=== PATIENT | male | born 1955 | race Caucasian/White ===

== ENCOUNTER → 2018-11-01 | Day surgery (SDC) | payer BC ==
[2018-10-27 13:31] VITALS: BMI 31.5
[~2018-11-01] MED LIST: LACTATED RINGERS 1,000 ML IV SCH; LIDOCAINE 1% 20 ML VIAL (10MG/ML) FOR IV START INTRADERMA ONE; LIDOCAINE 1% 20 ML VIAL (10MG/ML) FOR IV START INTRADERMA PRN; MIDAZOLAM 2 MG/2 ML VIAL ONE; PROPOFOL 10 MG/ML 20 ML VIAL IV ONE; fentaNYL (PF) 50 MCG/ML 2 ML AMP ONE
[2018-11-01 07:56] VITALS: TEMP 97.7
[2018-11-01 08:00] LABS: Glucose,Whole Blood 182 mg/dL (75-99)
--- NOTE | 2018-11-01 08:45 | P.PCN ---
Date of Procedure: 11/01/18 Procedure(s) Performed: BRIEF HISTORY: Patient is a 63-year-old pleasant male, scheduled for an elective colonoscopy as a part of screening for colon neoplasia. PROCEDURE PERFORMED: Colonoscopy with snare polypectomy. PREOPERATIVE DIAGNOSIS: Screening for colon cancer. IV sedation per Anesthesia. PROCEDURE: After informed consent was obtained, the patient, was brought into the endoscopy unit. IV sedation was administered by Anesthesia under continuous monitoring. Digital rectal examination was normal. Initially the Olympus CF- 160 flexible video colonoscope was then inserted in the rectum, gradually advanced into the cecum without any difficulty. Careful examination was performed as the scope was gradually being withdrawn. Ileocecal valve and the appendiceal orifice were visualized and appeared normal. Prep was excellent. The base of the cecum there was a 5 mm sessile polyp that was removed by snare polypectomy. Rest of the mucosa of the cecum, ascending colon, transverse colon , appeared normal. The descending colon there was a 6-7 mm polyp that was removed by snare polypectomy. Rest of the descending colon, sigmoid colon, and rectum appeared normal. Retroflexion was performed in the rectum and both internal and external hemorrhoids were noted one of which was oozing. The patient tolerated the procedure well. IMPRESSION: 5 mm sessile cecal polyp status post polypectomy 6-7 mm descending colon polyp status post polypectomy Small internal and external hemorrhoids. RECOMMENDATIONS: Findings of this examination were discussed with the patient as well as his family. He was advised to follow with the biopsy results. If the biopsy shows adenoma he can have a repeat colonoscopy in 5 years. In regards to bleeding from hemorrhoids was advised to use sitz baths, use over-the -counter Preparation H as needed and avoid straining and constipation.
[2018-11-01 09:18] VITALS: BP 123/85; PULSE 72; RESP 16
== END | disposition home or self-care (01) ==
LOC: ORWHC2ENDO 07:29
PROVIDERS: ATTEND Internal Medicine Gastroenterology
DX: Z12.11 Encounter for screening for malignant neoplasm of colon (principal); D12.0 Benign neoplasm of cecum; D12.4 Benign neoplasm of descending colon; K64.8 Other hemorrhoids; K64.4 Residual hemorrhoidal skin tags; E78.5 Hyperlipidemia, unspecified; I10 Essential (primary) hypertension; E11.9 Type 2 diabetes mellitus without complications; Z87.442 Personal history of urinary calculi; Z79.84 Long term (current) use of oral hypoglycemic drugs; Z79.899 Other long term (current) drug therapy; Z79.82 Long term (current) use of aspirin; Z86.73 Personal history of transient ischemic attack (TIA), and cerebral infarction without residual deficits
CPT/HCPCS: 45385; J2250; J3010; J2704; 88305

== ENCOUNTER 2021-02-04 09:57 | Day surgery (SDC) | payer BC ==
--- NOTE | 2021-02-04 08:41 | P.GSHP ---
History of Present Illness H&P Date: 01/29/21 Chief Complaint: Right flank pain The patient is a 65-year-old white male with a history of urolithiasis. He was recently hospitalized at [facility] with right flank pain. Computed tomography scan showed evidence of right hydronephrosis due to a 7 mm right proximal ureteral calculus. There was evidence of right perinephric stranding and findings consistent with a forniceal rupture. Multiple bladder calculi were seen. He underwent right ureteral stent insertion. He now comes for removal of the stent, along with cystolithotripsy and ureteroscopy with laser lithotripsy. - Constitutional Constitutional: Reports chills, Denies fever - Gastrointestinal Gastrointestinal: Denies nausea, Denies vomiting - Genitourinary (Male) Genitourinary: Reports flank pain, Reports kidney stones, Denies dysuria, Denies hematuria Past Medical History Past Medical History: CVA/TIA, Diabetes Mellitus, Hyperlipidemia, Hypertension Additional Past Medical History / Comment(s): CVA 7 YEARS AGO. KIDNEY STONES History of Any Multi-Drug Resistant Organisms: None Reported Past Surgical History: Tonsillectomy Additional Past Surgical History / Comment(s): KIDNEY STONE REMOVAL. COLONOSCOPY Past Anesthesia/Blood Transfusion Reactions: No Reported Reaction Past Psychological History: No Psychological Hx Reported Past Alcohol Use History: Occasional Past Drug Use History: None Reported - Past Family History Father Family Medical History: Cancer Mother Family Medical History: Cancer Medications and Allergies Home Medications Medication Instructions Recorded Confirmed Type Ascorbic Acid [Vitamin C] 1,000 mg PO HS 10/27/18 01/30/21 History Aspirin EC [Ecotrin Low Dose] 81 mg PO HS 10/27/18 01/30/21 History Cyanocobalamin (Vitamin B-12) 1,000 mcg PO HS 10/27/18 01/30/21 History [Vitamin B-12] Multivit-Min/Ferrous Sulfate [One 1 each PO HS 10/27/18 01/30/21 History Daily Multivitamin-Mineral] metFORMIN HCL [metFORMIN HCL ER] 750 mg PO HS 10/27/18 01/30/21 History Aspirin [Adult Low Dose Aspirin EC] 81 mg PO DAILY 01/30/21 01/30/21 History Cholecalciferol [Vitamin D3 (25 1 tab PO DAILY 01/30/21 01/30/21 History Mcg = 1000 Iu)] Ciprofloxacin HCl [Cipro] 250 mg PO BID 01/30/21 01/30/21 History Esomeprazole Magnesium [NexIUM] 20 mg PO HS 01/30/21 01/30/21 History Glucosamine/Chondr Keller A Sod [Osteo 1 tab PO DAILY 01/30/21 01/30/21 History Bi-Flex Caplet] HYDROcodone/APAP 5-325MG [[place] 1 tab PO Q6H PRN 01/30/21 01/30/21 History 5-325] Lovastatin [Mevacor] 20 mg PO HS 01/30/21 01/30/21 History Ondansetron HCl [Zofran] 4 mg PO DAILY PRN 01/30/21 01/30/21 History Allergies Allergy/AdvReac Type Severity Reaction Status Date / Time No Known Allergies Allergy Verified 01/30/21 16:05 Surgical - Exam - General well developed, well nourished, no distress - Neck no masses, trachea midline - Respiratory normal respiratory effort - Abdomen Abdomen: soft, non tender, no guarding, no rigid, no rebound - Genitourinary normal penis with no external lesions, testicles non-tender - Psychiatric oriented to time, oriented to person, oriented to place, speech is normal, memory intact Results - Imaging CT scan - abdomen: report reviewed, image reviewed Assessment and Plan (1) Calculus in bladder Status: Acute Code(s): N21.0 - CALCULUS IN BLADDER SNOMED Code(s): 71140163 (2) Calculus of ureter Status: Acute Code(s): N20.1 - CALCULUS OF URETER SNOMED Code(s): 07045860 Plan: Cystoscopy, right ureteral stent removal, cystolithotripsy, right ureteroscopy with Holmium laser lithotripsy. The procedure has been reviewed in detail with the patient. He is aware of potential risks, which include anesthesia, bleeding, infection, and ureteral injury.
[2021-02-04] MEDS ORDERED: SCOPOLAMINE 1.5MG/72HR PATCH TRANSDERM ONE (10:21)
[2021-02-04] MEDS ORDERED: DEXAMETHASONE SOD PHOSPHATE 4 MG/ML 1 ML VIAL IV ONE (10:21)
[2021-02-04] MEDS ORDERED: HYDROmorphone 0.5 MG/0.5 ML SYRINGE IVP PRN (10:21)
[2021-02-04] MEDS ORDERED: LACTATED RINGERS 1,000 ML IV SCH (10:21)
[2021-02-04] MEDS ORDERED: LIDOCAINE 1% (10MG/ML) FOR IV START INTRADERMA PRN (10:21)
[2021-02-04] MEDS ORDERED: ONDANSETRON 4 MG/2 ML VIAL IVP ONE (10:21)
[2021-02-04 10:31] VITALS: TEMP 97
[2021-02-04 10:34] LABS: Glucose,Whole Blood 203 mg/dL (75-99)
[2021-02-04] MEDS ORDERED: INSULIN ASPART (NovoLOG) 100 UNIT/ML VIAL SQ ONE (10:41)
--- NOTE | 2021-02-04 10:56 | XR ---
KUB HISTORY: Presurgical, right-sided kidney stones Frontal KUB and 2 images, no comparisons There is a double-J stent on the right. Bowel gas may obscure underlying detail. There are calcificat ions present within the pelvis. Vascular calcifications are also noted incidentally. IMPRESSION: Indwelling stent. Possible distal ureteral calculi.
[2021-02-04] MEDS ORDERED: fentaNYL (PF) 50 MCG/ML 2 ML AMP ONE (11:51)
[2021-02-04] MEDS ORDERED: PROPOFOL 10 MG/ML 20 ML VIAL IV ONE (11:51)
[2021-02-04] MEDS ORDERED: GLYCOPYRROLATE 0.2 MG/ML 2 ML VIAL ONE (11:51)
[2021-02-04] MEDS ORDERED: MIDAZOLAM 2 MG/2 ML VIAL ONE (11:51)
[2021-02-04] MEDS ORDERED: LIDOCAINE 1% INJ 10MG/ML (20 ML MDV) ONE (11:51)
[2021-02-04] MEDS ORDERED: PHENYLEPHRINE-0.9% NACL SYG 1,000 MCG/10 ML SYRINGE ONE (11:51)
[2021-02-04] MEDS ORDERED: SUCCINYLCHOLINE CHLORIDE 100 MG/5 ML SYR IV ONE (11:51)
[2021-02-04] MEDS ORDERED: LACTATED RINGERS 1,000 ML IV ONE (13:31)
--- NOTE | 2021-02-04 14:02 | FL ---
EXAMINATION TYPE: FL guidance operating room DATE OF EXAM: 02/04/2021 CLINICAL HISTORY: Right ureter stone TECHNIQUE: Fluoroscopy. COMPARISON: None. FINDINGS: Fluoroscopic guidance was provided during cystoscopy and lithotripsy procedure performed apty Daniels. A total of 31 seconds of fluoroscopic time was utilized during the procedure and 6 spo t images was acquired. Images acquired to access via right UVJ with subsequent advancement of guidewi re and then ureter stent. IMPRESSION: As Above.
[2021-02-04 14:15] LABS: Glucose,Whole Blood 225 mg/dL (75-99)
[2021-02-04 14:16] VITALS: RESP 16
--- NOTE | 2021-02-04 14:38 | P.OP ---
Date of Procedure: 02/04/21 Preoperative Diagnosis: Bladder calculi, right ureteral calculus Postoperative Diagnosis: Bladder calculus, right ureteral calculus, right renal calculus Procedure(s) Performed: Cystoscopy, right ureteroscopy with Holmium laser lithotripsy and stone basket ing, right ureteral stent change Anesthesia: GETA Surgeon: Hugo Daniels Estimated Blood Loss (ml): 5 IV fluids (ml): 1,000 Condition: stable Disposition: PACU Indications for Procedure: The patient is a 65-year-old white male with a history of urolithiasis. He was recently hospitalized at [facility] with right flank pain. Computed tomography scan showed evidence of right hydronephrosis due to a 7 mm right proximal ureteral calculus. There was evidence of right perinephric stranding and findings consistent with a forniceal rupture. Multiple bladder calculi were seen. He underwent right ureteral stent insertion. He now comes for removal of the stent, along with removal of any residual bladder calculi, and ureteroscopy with laser lithotripsy. Operative Findings: Right distal ureteral calculus, fragmented and removed completely. Description of Procedure: The patient was taken to the operating room and placed in the dorsolithotomy pos ition, with legs supported in Con stirrups. The external genitalia was prepped and draped sterilely. The 30 lens was used to introduce the 21-Brazilian Pfeiffer cystoscopic sheath through the urethra and into the bladder under direct vision. The prostatic urethra showed evidence of mild lateral lobe enlargement. The bladder was examined in its entirety. One calculus was seen. Grasping forceps were used to grasp the distal end of the right ureteral stent, which was removed along with the cystoscope. The Pfeiffer semirigid ureteroscope was advanced into the bladder, and the right ureteral orifice was cannulated. The ureteroscope was advanced up to the distal ureteral calculus. The 200 micron Holmium laser probe was passed through the ureteroscope, and lithotripsy was performed. Some angulation of the ureter was noted, and after fragmenting the calculus a small ureteral perforation was noted on the lateral aspect of the ureter. Once this was recognized, a Glidewire was passed through the ureter and up to the right renal pelvis. The ureteroscope was advanced alongside the Glidewire, and a 1.9-Brazilian nitinol basket was used to remove all calculus fragments from the ureter. The semirigid ureteroscope could not be passed beyond the mid ureter, and therefore an 11/13-Brazilian ureteral access catheter was passed over the wire, up to the mid ureter. The mini flexible ureteroscope was then used to perform ureteroscopy. There were no residual calculus fragments seen within the ureter. A mid pole calculus was seen measuring 2-3 mm in size, and lithotripsy was performed using the holmium laser. The ureteroscope was then slowly withdrawn under direct vision. The Glidewire was backloaded into the cystoscope, which was passed into the bladder. A 26 cm, 6-Brazilian double-J ureteral stent was placed over the wire. Proper stent positioning was verified fluoroscopically and endoscopically. All calculus fragments were removed from the bladder. The largest measured approximately 2 mm in size, and was sent for chemical analysis. The bladder was emptied and the cystoscope removed. The patient tolerated the procedure well and was taken to the recovery room in stable condition. [facility] Report: Procedure Acuity: Elective Stone Size and Location: 7 mm, right distal ureter Ureteral Dilation: No Ureteral Access Sheath Used: Yes Stone Sent for Analysis: Yes All Stones/Fragments Were Removed with a Basket: Yes Complications: Small right distal ureteral perforation Preoperative Antibiotics Given: Yes Stent Placed: Yes If Stent Placed, Was String Left Attached: No If Stent Placed, When is it to be Removed: 1 month Discharge Medications: Tamsulosin
[2021-02-04 16:03] LABS: Glucose,Whole Blood 227 mg/dL (75-99)
[2021-02-04 16:11] VITALS: BP 129/80; PULSE 75
== END 2021-02-04 16:35 | disposition home or self-care (01) ==
LOC: OR 09:57
PROVIDERS: ATTEND Urology
DX: N21.0 Calculus in bladder (principal); N20.1 Calculus of ureter; N13.30 Unspecified hydronephrosis; I10 Essential (primary) hypertension; E78.5 Hyperlipidemia, unspecified; Z86.73 Personal history of transient ischemic attack (TIA), and cerebral infarction without residual deficits; Z87.442 Personal history of urinary calculi; Z90.89 Acquired absence of other organs; Z80.9 Family history of malignant neoplasm, unspecified; Z79.84 Long term (current) use of oral hypoglycemic drugs; Z79.82 Long term (current) use of aspirin; Z79.899 Other long term (current) drug therapy
CPT/HCPCS: 82365; 74018; 52356; C1758; J2250; J1100; J0690; J2405; J2001; J3010; J2370; J0330; J2704